=== PATIENT | male | born 1985 | race Caucasian/White ===

== ENCOUNTER 2025-02-28 15:17 | Emergency (ER) | payer BC, SELFPAY ==
--- OUTSIDE RECORDS SUMMARY | 2024-05-31 03:00 | XMS_ITS ---
Author Organization [facility] Address [address] [place], [place] [id number] Care Team Providers Care Assembler Utility Buildings Name Role Phone Stefani Cross Primary Care Provider REASON FOR VISIT new patient Social History Sex Assigned At : Social History Observation Description Sex Assigned At Male Encounters Encounter Location Date Provider Diagnosis [facility] [place] [address] [place], [place] [id number] 05/31/2024 Stefani Cross Plan Of Treatment No Information Progress Notes * Hans BLUMDOB:1985 (39 yo M)Acc No.[id number]:05/31/2024 Progress Notes Patient: Hans DUMONT Provider: Jenna Cross MD :1985 A ge:38 Y S ex:Male Date:05/31/2024 Address:[facility] [address] [place], [id number] Subjective: * Chief Complaints: * 1 . New patient. * Medical History: * Ocular Surgical History: Objective: * Vitals: Vision: Spectacle Rx: Contact Lens: Eye Examination: Special Tests: Assessment: Plan: * Treatment: Care Plan: * Problems: * Billing Information: * Visit Code: * Procedure Codes: * Electronic signature of Yehuda Cross MD on 02/28/2025 at 03:54 PM CDT Sign off status: Pending * Provider: Jenna Cross MD Date: 1 08/01/2023 Generated for Winston jorgensen/Diallo/Yordy on: 0 02/28/2025 03:54 PM CDT
--- OUTSIDE RECORDS SUMMARY | 2025-01-29 04:15 | XMS_ITS ---
Author Organization [facility] Address [address] [place], [place] [id number] Care Team Providers Care Vocational Nursing Instructor Name Role Phone Stefani Cross Primary Care Provider REASON FOR VISIT 6 month f/u Medications Medication SIG (Take, Route, Frequency, Duration) Notes Start Date End Date Status Amphetamine-Dextroamphetam ine 20 MG 1 tablet Orally Twice a day Active Sertraline HCl 100 MG 1 tablet Orally On ce a day; Duration: 90 days Active clonazePAM 0.5 MG 1 tablet Orally Once a day; Duration: 15 days 07/24/2024 Active Social History Sex Assigned At : Social History Observation Description Sex Assigned At Male Encounters Encounter Location Date Provider Diagnosis [facility] [address] [place], [place] [id number] 01/29/2025 Stefani Cross Plan Of Treatment No Information Progress Notes * Hans BLUMDOB:1985 (39 yo M)Acc No.[id number]:01/29/2025 Progress Notes Patient: Hans DUMONT Provider: Jenna Cross MD :1985 A ge:39 Y S ex:Male Date:01/29/2025 Address:[facility] [address] [place], [id number] Subjective: * Chief Complaints: * 1 . 6 month f/u. * Medical History: * Ocular Surgical History: * Medications: T aking Amphetamine-Dextroamphetamine 20 MG Tablet 1 tablet Orally Twice a day , Taking Sertraline HCl 100 MG Tablet 1 tablet Orally Once a day , Taking clonazePAM 0.5 MG Tablet 1 tablet Orally Once a day Objective: * Vitals: Vision: Spectacle Rx: Contact Lens: Eye Examination: Special Tests: Assessment: Plan: * Treatment: Care Plan: * Problems: * Billing Information: * Visit Code: * Procedure Codes: * Electronic signature of Yehuda Cross MD on 02/28/2025 at 02:29 AM CDT Sign off status: Pending * Provider: Jenna Cross MD Date: 01/29/2025 Generated for Winston jorgensen/Diallo/Yordy on: 02/28/2025 02:29 AM CDT
--- OUTSIDE RECORDS SUMMARY | 2025-02-28 02:11 | XMS_ITS | Encounter Summary ---
Author Organization [facility] Address [address] [place] [address] Phone Care Team Providers Care Audioprosthologist Name Role Phone Provider, None Primary Care Provider Unavailabl e Reason for Visit * Reason Comments Sore Throat Encounter Details Date Type Department Care Team (Late st Contact Info) Description 02/28/2025 2:11 AM CDT - 02/28/2025 3:32 AM CDT Emergency [facility] Emergency [address] [place] [address] Kenna Somers MD [address] [place] [address] Sore throat Discharge Disposition: Discharged to home or Selfcare Social History Tobacco Use Types Packs/Day Years Used Date Smoking Tobacco: Never Assessed Sex and Gender Information Value Date Recorded Sex Assigned at Not on file Legal Sex Male 2:06 AM CDT Gender Identity Not on file Sexual Orientation Not on file documented as of this encounter Last Filed Vital Signs Vital Sign Reading Time Taken Comments Blood Pressure 128/75 02/28/2025 3:27 AM CDT Pulse 73 02/28/2025 3:27 AM CDT Temperature 36.4 C (97.6 F) 02/28/2025 2:19 AM CDT Respiratory Rate 17 02/28/2025 3:27 AM CDT Oxygen Saturation 94% 02/28/2025 3:27 AM CDT Inhaled Oxygen Concentration - - Weight 83.9 kg (185 lb) 02/28/2025 2:19 AM CDT Height 175.3 cm (5' 9) 02/28/2025 2:19 AM CDT Body Mass Index 27.32 02/28/2025 2:19 AM CDT documented in this encounter Discharge Instructions * Discharge Instructions* Kenna Somers MD - 02/28/2025 3:21 AM CDT As we discussed, return to the ER if you develop fever (100.4 or greater), worsening pain, vomiting, drooling, shortness of breath, or you have any concerns. If you are a smoker, STOP SMOKING. Please use Tylenol/Motrin as needed for pain/fever control, follow directions on the package. documented in this encounter ED Notes * Leslie Early RN - 02/28/2025 3:31 AM CDT Patient discharged. Discharge instructions and patient educational material reviewed with patient; questions and concerns addressed; patient verbalizes understanding, using teach back. Patient was given 0 prescriptions. Patient was informed no drinking alcohol, driving or operating heavy machinery while taking narcotics or muscle relaxants. Patient discharged per ambulatory mode with self as responsible alliance party. SL D/C'ed with Parmjit cath intact. * Leslie Early RN - 02/28/2025 3:06 AM CDT Patient resting on stretcher with no requests at this time. Informed patient that we are awaiting lab results. States understanding. at bedside. Call light within reach. * Leslie Early RN - 02/28/2025 2:40 AM CDT Pt medicated per provider orders. Pt educated on intended effects and side effects of medication and verbalized understanding, able to provide teach back of education. * Leslie Early RN - 02/28/2025 2:20 AM CDT Patient presents to ED room 5A. No change in patients condition since triage note written. See triage note. Assessment as noted. Call light within reach. * Kenna Somers MD - 02/28/2025 2:17 AM CDT Chief Complaint Patient presents with Sore Throat 39M current smoker presents to the ED w/concerns for L neck swelling. 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 Notes mild odynophagia, but able to tolerate PO. Denies any trauma, sick contacts, or travel. Current Medications[1] Allergies[2] History reviewed. No pertinent past medical history. Past Surgical History[3] Social History Socioeconomic History Marital status: Spouse name: Not on file Number of children: Not on file Years of education: Not on file Highest education level: Not on file Occupational History Not on file Tobacco Use Smoking status: Not on file Smokeless tobacco: Not on file Substance and Sexual Activity Alcohol use: Not on file Drug use: Not on file Sexual activity: Not on file Other Topics Concern Not on file Social History Narrative Not on file Social Drivers of Health Financial Resource Needs: Not on file Food Insecurity Needs: Not on file Transportation Needs: Not on file Physical Activity: Not on file Stress: Not on file Social Integration: Not on file Personal Safety: Low Risk (02/28/2025) Personal Safety Feels Unsafe at Home or Work/School: no Feels Threatened by Someone: no Does Anyone Try to Keep You From Having Contact with Others or Doing Things Outside Your Home?: no Physical Signs of Abuse Present: no Housing Stability: Not on file BP 126/76 Pulse 80 Temp 97.6 ??F (36.4 ??C) (Tympanic) Resp 17 Ht 5' 9 (1.753 m) Wt 185 lb (83.9 kg) SpO2 94% BMI 27.32 kg/m?? Review of Systems Constitutional: Negative for fever. HENT: Positive for sore throat. Eyes: Negative for visual disturbance. Respiratory: Negative for shortness of breath. Gastrointestinal: Negative for abdominal pain. Genitourinary: Negative for dysuria. Skin: Negative for rash. Neurological: Negative for headaches. Physical Exam Constitutional: General: He is not in acute distress. Appearance: He is well-developed and normal weight. He is not ill-appearing, toxic-appearing or diaphoretic. HENT: Head: Normocephalic and atraumatic. Ears: Comments: Bilateral external exam is normal Mouth/Throat: Mouth: Mucous membranes are moist. No oral lesions. Pharynx: Oropharynx is clear. Uvula midline. No pharyngeal swelling, oropharyngeal exudate, posterior oropharyngeal erythema or uvula swelling. Tonsils: No tonsillar exudate or tonsillar abscesses. Eyes: Conjunctiva/sclera: Conjunctivae normal. Pupils: Pupils are equal, round, and reactive to light. Neck: Thyroid: No thyromegaly. Comments: There is appreciable swelling of the L side of the neck compared to the R. There is no palpable fluctuance, crepitus, or induration. There is no appreciable erythema. Cardiovascular: Rate and Rhythm: Normal rate and regular rhythm. Pulmonary: Effort: Pulmonary effort is normal. Abdominal: Palpations: Abdomen is soft. Musculoskeletal: Cervical back: Normal range of motion and neck supple. Lymphadenopathy: Cervical: No cervical adenopathy. Skin: General: Skin is warm and dry. Capillary Refill: Capillary refill takes less than 2 seconds. Neurological: General: No focal deficit present. Mental Status: He is alert. Procedures Recent Results (from the past 24 hours) CMP Collection Time: 02/28/25 2:36 AM Result Value Ref Range SODIUM 142 136 - 145 mmol/L POTASSIUM 4.0 3.5 - 5.1 mmol/L CHLORIDE 105 98 - 107 mmol/L CO2, VENOUS 28 22 - 30 mmol/L ANION GAP 13.0 <18.0 mmol/L GLUCOSE 90 70 - 99 mg/dL BUN 21 9 - 21 mg/dL CREATININE, BLOOD 1.10 0.70 - 1.30 mg/dL BUN/CREATININE RATIO 19 12 - 20 ratio TOTAL PROTEIN 6.5 6.0 - 8.0 g/dL ALBUMIN 4.0 3.5 - 5.0 g/dL A/G RATIO 1.6 1.0 - 2.2 CALCIUM 8.8 8.7 - 10.5 mg/dL T BILI 0.3 0.2 - 1.2 mg/dL SGOT (AST) 23 <43 U/L SGPT (ALT) 22 <56 U/L ALKALINE PHOSPHATASE 63 40 - 150 U/L GFR, ESTIMATED >60 >=60 GFR, EST. >60 >=60 GFR, EST. NONAFRICAN >60 >=60 CBC with Auto Differential Collection Time: 02/28/25 2:36 AM Result Value Ref Range WBC 7.73 4.00 - 12.00 10(3)/mcL RBC 4.36 (L) 4.40 - 5.80 10(6)/mcL HEMOGLOBIN (HGB) 13.6 13.0 - 16.5 g/dL HEMATOCRIT (HCT) 39.3 38.0 - 50.0 % MCV 90.1 82.0 - 96.0 fL MCH 31.2 26.0 - 32.0 pg MCHC 34.6 31.0 - 36.0 g/dL PLATELET COUNT 247 140 - 440 10(3)/mcL RDW 12.5 11.8 - 15.5 % MPV 8.7 8.0 - 12.6 fL NEUTROPHILS 53.7 40.0 - 68.0 % LYMPHOCYTES 32.9 19.0 - 49.0 % MONOCYTES 8.4 3.0 - 13.0 % EOSINOPHILS 4.0 0.0 - 8.0 % BASOPHILS 0.6 0.0 - 1.0 % IMMATURE GRANULOCYTE 0.4 0.0 - 0.4 % ABSOLUTE NEUTROPHILS 4.15 1.40 - 5.30 10(3)/mcL ABSOLUTE LYMPHOCYTES 2.54 0.90 - 3.30 10(3)/mcL ABSOLUTE MONOCYTES 0.65 0.10 - 0.90 10(3)/mcL ABSOLUTE EOSINOPHIL 0.31 0.00 - 0.50 10(3)/mcL ABSOLUTE BASOPHILS 0.05 0.00 - 0.10 10(3)/mcL ABSOLUTE IMMATURE GRANULOCYTE 0.03 0.00 - 0.03 10 (3) mcL. NRBC PER 100 WBC 0 GROUP A STREP BY PCR Collection Time: 02/28/25 2:38 AM Specimen: Throat; Swab Result Value Ref Range GROUP A STREP BY PCR NOT DETECTED NOT DETECTED Imaging Results None Medical Decision Making Check labs and strep Treat w/Oral decadron Patient feels better after obs here in the ED Labs and strep test unremarkable. Speaking in full, clear sentences w/o pain or dyspnea. Vss, no emc. Clinical Impression 1. Neck swelling 2. Sore throat Disposition: Discharge [1] No current facility-administered medications for this encounter. No current outpatient medications on file. [2] No Known Allergies [3] No past surgical history on file. * Sandra Garcia RN - 02/28/2025 2:15 AM CDT Pt to ED with c/o throat pain and swelling that started 4-5 hours ago. Pt reports it started under his tongue and progressed to the left side of his throat. Denies difficulty breathing or swallowing.Respirations are even and non- labored. Pt afebrile documented in this encounter Miscellaneous Notes * PatientPass Patient Instructions - Kenna Somers MD - 02/28/2025 3:21 AM CDT Images from the original note were not included. Patient Education Table of Contents Sore Throat To view videos and all your education online visit, [email or web address] or scan this QR code with your smartphone. Access to this content will in one year. Sore Throat When you have a sore throat, your throat may feel: Tender. Burning. Irritated. Scratchy. Painful when you swallow. Painful when you talk. Many things can cause a sore throat, such as: An infection. Allergies. Dry air. Smoke or pollution. Radiation treatment for cancer. Gastroesophageal reflux disease (GERD). A tumor. A sore throat can be the first sign of another sickness. It can happen with other problems, like: Coughing. Sneezing. Fever. Swelling of the glands in the neck. Most sore throats go away without treatment. Follow these instructions at home: Medicines Take myot-ttl-ckqomtf and prescription medicines only as told by your doctor. Children often get sore throats. Do not give your child aspirin. Use throat sprays to soothe your throat as told by your health care provider. Managing pain To help with pain: Sip warm liquids, such as broth, herbal tea, or warm water. Eat or drink cold or frozen liquids, such as frozen ice pops. Rinse your mouth (gargle) with a salt water mixture 3?4 times a day or as needed. ? To make salt water, dissolve ??1 tsp (3?6 g) of salt in 1 cup (237 mL) of warm water. ? Do not swallow this mixture. Suck on hard candy or throat lozenges. Put a cool-mist humidifier in your bedroom at night. Sit in the bathroom with the door closed for 5?10 minutes while you run hot water in the shower. General instructions Do not smoke or use any products that contain nicotine or tobacco. If you need help quitting, ask your doctor. Get plenty of rest. Drink enough fluid to keep your pee (urine) pale yellow. Wash your hands often for at least 20 seconds with soap and water. If soap and water are not available, use hand director cost. Contact a doctor if: You have a fever for more than 2?3 days. You keep having symptoms for more than 2?3 days. Your throat does not get better in 7 days. You have a fever and your symptoms suddenly get worse. Your child who is 3 months to 3 years old has a temperature of 102.2?F (39?C) or higher. Get help right away if: You have trouble breathing. You cannot swallow fluids, soft foods, or your spit. You have swelling in your throat or neck that gets worse. You feel like you may vomit (nauseous) and this feeling lasts a long time. You cannot stop vomiting. These symptoms may be an emergency. Get help right away. Call your local emergency services (911 int [place] Do not wait to see if the symptoms will go away. Do not drive yourself to the hospital. Summary A sore throat is a painful, burning, irritated, or scratchy throat. Many things can cause a sore throat. Take hcub-slk-crcpywy medicines only as told by your doctor. Get plenty of rest. Drink enough fluid to keep your pee (urine) pale yellow. Contact a doctor if your symptoms get worse or your sore throat does not get better within 7 days. This information is not intended to replace advice given to you by your health care provider. Make sure you discuss any questions you have with your health care provider. Document Released: 2009-03-14 Document Updated: 2021-08-31 Document Reviewed: 2021-09-01 Elsevier Patient Education ? 2024 [employer] documented in this encounter Plan of Treatment Not on file documented as of this encounter Procedures Procedure Name Priority Date/Time Associated Diagnosis Comments GROUP A STREP BY PCR STAT 02/28/2025 2:38 AM CDT CBC WITH AUTO DIFFERENTIAL STAT 02/28/2025 2:36 AM CDT CMP (COMPREHENSIVE METABOLIC PANEL) STAT 02/28/2025 2:36 AM CDT COMPLETE BLOOD COUNT (CBC) WITH DIFF STAT 02/28/2025 2:36 AM CDT documented in this encounter Results * GROUP A STREP BY PCR (02/28/2025 2:38 AM CDT) Pathologist [facility] GROUP A STREP BY PCR NOT DETECTED NOT DETECTED 02/28/2025 3:11 AM CDT [facility] Swab STRUCTURE OF ANTERIOR PORTION OF NECK / Unknown Non-Phlebotomy Collection / Unknown 02/28/2025 2:38 AM CDT 02/28/2025 2:45 AM CDT us Kenna Somers MD MICROBIOLOGY - GENERAL ORDERABLE S Final Result [facility] [address] [place] [address] * (ABNORMAL) CBC with Auto Differential (02/28/2025 2:36 AM CDT) Pathologist [facility] WBC 7.73 4.00 - 12.00 10(3)/mcL 02/28/2025 2:47 AM CDT [facility] RBC 4.36(L) 4.40 - 5.80 10(6)/mcL 02/28/2025 2:47 AM CDT [facility] HEMOGLOBIN (HGB) 13.6 13.0 - 16.5 g/dL 02/28/2025 2:47 AM CDT [facility] HEMATOCRIT (HCT) 39.3 38.0 - 50.0 % 02/28/2025 2:47 AM CDT [facility] MCV 90.1 82.0 - 96.0 fL 02/28/2025 2:47 AM CDT [facility] MCH 31.2 26.0 - 32.0 pg 02/28/2025 2:47 AM CDT [facility] MCHC 34.6 31.0 - 36.0 g/dL 02/28/2025 2:47 AM CDT [facility] PLATELET COUNT 247 140 - 440 10(3)/mcL 02/28/2025 2:47 AM CDT [facility] RDW 12.5 11.8 - 15.5 % 02/28/2025 2:47 AM CDT [facility] MPV 8.7 8.0 - 12.6 fL 02/28/2025 2:47 AM CDT [facility] NEUTROPHILS 53.7 40.0 - 68.0 % 02/28/2025 2:47 AM CDT [facility] LYMPHOCYTES 32.9 19.0 - 49.0 % 02/28/2025 2:47 AM CDT [facility] MONOCYTES 8.4 3.0 - 13.0 % 02/28/2025 2:47 AM CDT [facility] EOSINOPHILS 4.0 0.0 - 8.0 % 02/28/2025 2:47 AM CDT [facility] BASOPHILS 0.6 0.0 - 1.0 % 02/28/2025 2:47 AM CDT [facility] IMMATURE GRANULOCYTE 0.4 0.0 - 0.4 % 02/28/2025 2:47 AM CDT [facility] ABSOLUTE NEUTROPHILS 4.15 1.40 - 5.30 10(3)/mcL 02/28/2025 2:47 AM CDT [facility] ABSOLUTE LYMPHOCYTES 2.54 0.90 - 3.30 10(3)/[facility] 02/28/2025 2:47 AM CDT [facility] ABSOLUTE MONOCYTES 0.65 0.10 - 0.90 10(3)/mcL 02/28/2025 2:47 AM CDT [facility] ABSOLUTE EOSINOPHIL 0.31 0.00 - 0.50 10(3)/[facility] 02/28/2025 2:47 AM CDT [facility] ABSOLUTE BASOPHILS 0.05 0.00 - 0.10 10(3)/[facility] 02/28/2025 2:47 AM CDT [facility] ABSOLUTE IMMATURE GRANULOCYTE 0.03 0.00 - 0.03 10 (3) mcL. 02/28/2025 2:47 AM CDT [facility] NRBC PER 100 WBC 0 02/29/20 25 2:47 AM CDT [facility] Blood Venipuncture / Unknown 02/28/2025 2:36 AM CDT 02/28/2025 2:45 AM CDT us Kenna Somers MD HEMATOLOGY ORDERABLES Final Resu lt [facility] [address] [place] [address] * CMP (02/28/2025 2:36 AM CDT) SODIUM 142 136 - 145 mmol/L 02/28/2025 3:06 AM CDT [facility] POTASSIUM 4.0 3.5 - 5.1 mmol/L 02/28/2025 3:06 AM CDT [facility] CHLORIDE 105 98 - 107 mmol/L 02/28/2025 3:06 AM CDT [facility] CO2, VENOUS 28 22 - 30 mmol/L 02/28/2025 3:06 AM [facility] ANION GAP 13.0 <18.0 mmol/L 02/28/2025 3:06 AM [facility] GLUCOSE 90 70 - 99 mg/dL 02/28/2025 3:06 AM [facility] BUN 21 9 - 21 mg/dL 02/28/2025 3:06 AM [facility] CREATININE, BLOOD 1.10 0.70 - 1.30 mg/dL 02/28/2025 3:06 AM [facility] BUN/CREATININE RATIO 19 12 - 20 ratio 02/28/2025 3:06 AM [facility] TOTAL PROTEIN 6.5 6.0 - 8.0 g/dL 02/28/2025 3:06 AM [facility] ALBUMIN 4.0 3.5 - 5.0 g/dL 02/28/2025 3:06 AM [facility] A/G RATIO 1.6 1.0 - 2.2 02/28/2025 3:06 AM [facility] CALCIUM 8.8 8.7 - 10.5 mg/dL 02/28/2025 3:06 AM [facility] T BILI 0.3 0.2 - 1.2 mg/dL 02/28/2025 3:06 AM [facility] SGOT (AST) 23 <43 U/L 02/28/2025 3:06 AM [facility] SGPT (ALT) 22 <56 U/L 02/28/2025 3:06 AM [facility] ALKALINE PHOSPHATASE 63 40 - 150 U/L 02/28/2025 3:06 AM [facility] GFR, ESTIMATED >60 >=60 02/28/2025 3:06 AM [facility] Comment: Creatinine Clearance is the preferred criteria for selecting drug dose adjustments in renally impaired patients. The GFR is provided as additional pertinent clinical information. GFR is reported in mL/min/1.73 sq m. Calculation based on the 2020 Chronic Kidney Disease Epidemiology Collaboration (CKD-EPI) equation refit without adjustment for race. GFR, EST. >60 >=60 025 3:06 AM CDT [facility] Comment: Creatinine Clearance is the preferred criteria for selecting drug dose adjustments in renally impaired patients. The GFR is provided as additional pertinent clinical information. GFR is reported in mL/min/1.73 sq m. Calculation based on the 2009 Chronic Kidney Disease Epidemiology Collaboration (CKD-EPI). GFR, EST. NONAFRICAN >60 >=60 02/28/2025 3:06 AM CDT [facility] Comment: Creatinine Clearance is the preferred criteria for selecting drug dose adjustments in renally impaired patients. The GFR is provided as additional pertinent clinical information. GFR is reported in mL/min/1.73 sq m. Calculation based on the 2009 Chronic Kidney Disease Epidemiology Collaboration (CKD-EPI). Blood Venipuncture / Unknown 02/28/2025 2:36 AM CDT 02/28/2025 2:45 AM CDT us Kenna Somers MD CHEMISTRY ORDERABLES Final Resul t [facility] [address] [place] [address] documented in this encounter Visit Diagnoses Diagnosis Neck swelling- Primary Swelling, mass, or lump in head and neck Sore throat Acute pharyngitis documented in this encounter Administered Medications Inactive Administered Medications - up to 3 most recent administrations Medication Order MAR Action Action Date Dose Rate Site dexamethasone (DECADRON) 10 mg Oral 10 mg, Oral, ONCE, 1 dose, On Mon02/28/25 at 0300 Given 02/28/2025 2:39 AM CDT 10 mg documented in this encounter Active and Recently Administered Medications Times are shown in CDT. Scheduled Medication Order 02/26/2025 02/27/2025 02/28/2025 dexamethasone (DECADRON) 10 mg Oral (COMPLETED) 10 mg, Oral, ONCE, 1 dose, On Mon02/28/25 at 0300 0239 (Given - Provid er: Leslie Early RN) documented in this encounter Care Teams Audioprosthologist Relationship Specialty Start Date End Date Provider, None [place] PCP - General 02/28/25 documented as of this encounter
[2025-02-28 15:27] VITALS: BP 123/88; PULSE 91; RESP 18; TEMP 36.3; O2SAT 99
--- NOTE | 2025-02-28 15:31 | ED.GENADULT ---
HPI - General Adult General Stated complaint: work note Time Seen by Provider: 02/28/25 15:39 Source: patient Mode of arrival: ambulatory Limitations: no limitations History of Present Illness HPI narrative: 39 y/o male presented for Return to work note. Reports improving right hand pain, left shoulder pain following injury 5 days ago. Patient endorses injury 5 days ago, after which she was seen at [facility] and [facility] ER, imaging was completed and was told normal. He says he was advised to return to work on 02/27 per the work note. When he attempted to return to work his employer told him he needed additional clearance from a pcp, which he does not have. Pt says his symptoms are resolved, and he did not want to return to the ER for the note. Related Data Home Medications ?Medication ?Instructions ?Recorded ?Confirmed ?Last Taken ?Type clonazepam 0.5 mg tablet mg 02/28/25 Unknown History naproxen sodium 550 mg tablet mg 02/28/25 Unknown History Allergies Allergy/AdvReac Type Severity Reaction Status Date / Time No Known Allergies Allergy Verified 02/28/25 15:40 Review of Systems Review of Systems: CONSTITUTIONAL: Denies body aches, fever, chills, or sweats. CARDIOVASCULAR: Denies chest pain, palpitations, or edema. RESPIRATORY: Denies cough or dyspnea. SKIN: Denies wounds. MUSCULOSKELETAL: Denies back pain, joint pain, or myalgia. NEUROLOGIC: Denies headache, numbness, tingling, or weakness. All systems reviewed & are unremarkable except as noted in HPI and below PMFSH Comments At time of signature, I have reviewed and agree with nursing past medical, surgical, social and family history unless otherwise noted. Please see nursing chart for further information. There is no relevant family history pertinent to the presenting complaint Exam Narrative: GENERAL: Well-appearing EYES: Conjunctivae normal. CHEST: No respiratory distress. Clear to auscultation. HEART: Regular rate and rhythm. MUSCULOSKELETAL: No bony tenderness. EXTREMITIES: Normal range of motion. No edema. bilateral hand liability analyst strong and equal, no swelling or bruising to the hand. SKIN: Warm, dry, no rash. Capillary refill normal. Normal skin turgor. NEURO: No focal deficits. Alert and oriented x3. Gait steady. Course Course Emergency Course: Patient is aware of diagnosis, understands and agrees to treatment plan. Anticipatory guidance given. Patient agrees to follow-up as directed and is aware of reasons to seek care at the emergency department. Portions of this record may have been created with voice recognition software Level of Care: Express Care Visit Vital Signs Vital signs: Vital Signs Temperature 97.3 F L 02/28/25 15:27 Pulse Rate 91 02/28/25 15:27 Respiratory Rate 18 02/28/25 15:27 Blood Pressure 123/88 02/28/25 15:27 Pulse Oximetry 99 02/28/25 15:27 Oxygen Delivery Room Air 02/28/25 15:27 Temperature 97.3 F L 02/28/25 15:27 Pulse Rate 91 02/28/25 15:27 Respiratory Rate 18 02/28/25 15:27 Blood Pressure 123/88 02/28/25 15:27 Pulse Oximetry 99 02/28/25 15:27 Oxygen Delivery Room Air 02/28/25 15:27 Reviewed Medical Decision Making MDM Narrative Medical decision making narrative: Discussed physical exam findings. Pt completed imaging at outside facility, reports improvement in all symptoms. No bruising or swelling, no bony tenderness. Advised supportive measures and signs/symptoms to go to the ER. Pt is appropriate for outpt treatment and f/u. Differential Diagnosis Differential Diagnosis: hand sprain, strain, contusion Vital Signs Vital Signs: Vital Signs Temperature 97.3 F L 02/28/25 15:27 Pulse Rate 91 02/28/25 15:27 Respiratory Rate 18 02/28/25 15:27 Blood Pressure 123/88 02/28/25 15:27 Pulse Oximetry 99 02/28/25 15:27 Oxygen Delivery Room Air 02/28/25 15:27 Temperature 97.3 F L 02/28/25 15:27 Pulse Rate 91 02/28/25 15:27 Respiratory Rate 18 02/28/25 15:27 Blood Pressure 123/88 02/28/25 15:27 Pulse Oximetry 99 02/28/25 15:27 Oxygen Delivery Room Air 02/28/25 15:27 reviewed Discharge Plan Discharge Clinical Impression: Hand pain, right Patient Disposition: Home Condition: Stable Instructions: Antibiotic Form, Hand Sprain (ED) Additional Instructions: Rest avoid lifting, pushing, pulling etc. and elevate the hand, activity as tolerated Apply ice 15-20 minute intervals several times a day Motrin and Tylenol every 8 hours as needed Follow up with your primary care provider as needed go to the ER for worsening symptoms or concerns Patient Language: Uzbek Follow-up/Referrals: PHYSICIAN,GAUGE MACHINE OPERATOR [Primary Care Provider, Internal Medicine] Stand Alone Forms: Work/School Release IP Time of Disposition: 15:48
--- OUTSIDE RECORDS SUMMARY | 2025-02-28 15:54 | XMS_ITS | Encounter Summary ---
Author Organization [facility] Care Team Providers Care Spice Blender Name Role Phone Provider, None Primary Care Provider Unavailabl e Encounter Details Date Type Department Care Team (Latest Contact Info) Description 02/28/2025 Travel Social History Tobacco Use Types Packs/Day Years Used Date Smoking Tobacco: Never Assessed Sex and Gender Information Value Date Recorded Sex Assigned at Not on file Legal Sex Male 2:06 AM CDT Gender Identity Not on file Sexual Orientation Not on file documented as of this encounter Plan of Treatment Not on file documented as of this encounter Visit Diagnoses Not on filedocumented in this encounter Care Teams Spice Blender Relationship Specialty Start Date End Date Provider, None [place] PCP - General 02/28/25 documented as of this encounter
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
--- OUTSIDE RECORDS SUMMARY | 2025-02-28 15:54 | XMS_ITS | Patient Health Record ---
Author Organization [facility] Address [address] [place], [place] [id number] Care Team Providers Care Eating Disorder Specialist Name Role Phone Stefani Cross Primary Care Provider Allergies No Known Allergies Results Component Value Reference Range Notes CBC W/AUTO DIFF Reviewed date:07/24/2024 01:15:28 PM Interpretation: Performing [facility]), [address] [place], [place] [id number], Phone - [phone] Notes/Report: Test Performed at [facility], [facility] [address], [place] [address]. x2231. Assistant Professor Of Business: Hamzah Erickson MD. CLIA# [id number] Test Performed at [facility], [facility] [address], [place] [address]. x2231. Assistant Professor Of Business: Hamzah Erickson MD. CLIA# [id number] White blood cell count 7.03 3.80-10.80 K/uL Red blood cell count 4.85 4.20-5.80 M/uL Hemoglobin 14.8 13.2-17.1 g/dL Hematocrit 43.3 38.5-50.0 % Mean Cell Volume 89 80-100 fL Mean Corpuscular Hemoglobin 30.5 27.0-33.0 pg Mean Corpuscular Hemoglobin Concentration 34.2 32.0-36.0 % Red Cell Distribution Width 12.3 11.0-15.0 % Platelet Count 259 130-400 K/uL Mean Platelet Volume 8.7 7.4-11.5 fL Neutrophil # 3.9 2.0-6.9 K/uL Lymphocyte # 2.3 0.6-3.4 K/uL Monocyte # 0.6 0.0-0.9 K/uL Eosinophil # 0.19 0.00-0.70 K/uL Basophil # 0.040 0.000-0.200 K/uL Neutrophil % 56.1 37.0-80.0 % Lymphocyte% 32.4 10.0-50.0 % Monocyte % 8.1 0.0-12.0 % Eosinophil % 2.7 0.0-10.0 % Basophil % 0.6 0.0-3.0 % Lipid Profile Reviewed date:07/24/2024 01:15:59 PM Interpretation: Performing Lab:[facility] [place] [place] [id number], Phone - [phone] Notes/Report: Test Performed at [facility], [address], [place] [address]. x2231. Assistant Professor Of Business: Hamzah Erickson MD. CLIA# [id number] Test Performed at [facility], [facility] [address], [place] [address]. x2231. Assistant Professor Of Business: Hamzah Erickson MD. CLIA# [id number] Test Performed at [facility], [address], [place] [address]. x2231. Assistant Professor Of Business: Hamzah Erickson MD. CLIA# [id number] Test Performed at [facility], [facility] [address], [place] [address]. x2231. Assistant Professor Of Business: Hamzah Erickson MD. CLIA# [id number] Cholesterol Alinity 136 100-195 mg/dL Triglycerides Alinity 77 40-136 mg/dL ULTRA HIGH DENSITY LIPOPTOTEIN Alinity 46 36-76 mg/dL CHOL/UHDL RATIO Alinity 2.96 0.00-4.90 Direct LDL Cholesterol 87.00 60.00-130.00 mg/dl Thyroid Stimulating Hormone Reviewed date:07/24/2024 01:16:04 PM Interpretation: Performing Lab:[facility]), [address] [place], [place] [id number], Phone - [phone] Notes/Report: Test Performed at [facility], [address], [place] [address]. x2231. Assistant Professor Of Business: Hamzah Erickson MD. CLIA# [id number] Test Performed at [facility], [facility] [address], [place] [address]. x2231. Assistant Professor Of Business: Hamzah Erickson MD. CLIA# [id number] Test Performed at [facility], [address], [place] [address]. x2231. Assistant Professor Of Business: Hamzah Erickson MD. CLIA# [id number] Test Performed at [facility], [address], [place] [address]. x2231. Assistant Professor Of Business: Hamzah Erickson MD. CLIA# [id number] Test Performed at [facility], [address], [place] [address]. x2231. Assistant Professor Of Business: Hamzah Erickson MD. CLIA# [id number] TSH Alinity 1.09 0.40-4.94 mIU/mL CMP Reviewed date:07/26/2024 05:31:29 PM Interpretation: Performing Lab:[facility] ([facility]), [address] [place], [place] [id number], Phone - [phone] Notes/Report: Test Performed at [facility], [address], [place] [address]. x2231. Assistant Professor Of Business: Hamzah Erickson MD. CLIA# [id number] Test Performed at [facility], [address], [place] [address]. x2231. Assistant Professor Of Business: Hamzah Erickson MD. CLIA# [id number] Test Performed at [facility], [address], [place] [address]. x2231. Assistant Professor Of Business: Hamzah Erickson MD. CLIA# [id number] Test Performed at [facility], [address], [place] [address]. x2231. Assistant Professor Of Business: Hamzah Erickson MD. CLIA# [id number] Lactate Dehydrogenase 158 125-250 U/L Carbon Dioxide Alinity 23 20-31 mmol/L Albumin Alinity 4.4 3.2-5.4 g/dL Alkaline Phosphatase Alinity 65 40-125 U/L Alanine Aminotransferase Alinity 18 0-42 U/L Aspartate Aminotransferase Alinity 26 5-34 U/L Calcium Alinity 9.5 8.4-10.6 mg/dL Chloride Alinity 107 95-107 mmol/L Creatinine Alinity 1.16 0.70-1.25 mg/dL Glucose Alinity 125 55-110 mg/dL Urea Nitrogen Alinity 27.0 6.0-25.0 mg/dL Total Protein Alinity 7.3 5.8-8.5 g/dL GLOBULIN Alinity 2.90 1.50-4.50 Sodium Alinity 142 136-145 mmol/L Potassium Alinity 3.9 3.6-5.1 mmol/L BUN/CREAT RATIO Alinity 23.28 5.00-20.00 EGFR-AA Alinity 85 59-120 120ml/min/1.73m2 EGFR Alinity 70 59-120 120ml/min/1.73m2 Non Total Bilirubin Alinity 0.5 0.1-12.0 mg/dL DRUG ABUSE PANEL 14 Reviewed date:07/24/2024 01:15:46 PM Interpretation: Performing Lab:[facility] ([facility]), [address] [place], [place] [address], Phone - [phone] Notes/Report: Test Performed at [facility], [address], [place] [address]. x2231. Assistant Professor Of Business: Hamzah Erickson MD. CLIA# [id number] Amphetamines preliminary positive Negative Benzodiazepines negative Negative Cocaine preliminary positive Negative Marijuana negative Negative Methadone negative Negative ng/ml Opiates negative Negative Phencyclidine negative Negative Barbiturates negative Negative Buprenorphine negative Negative Ecstasy negative Negative Oxycodone negative Negative ng/mL Methamphetamine preliminary positive Negative Tricyclic Antidepressants negative Negative Reason For Referral No Information Medications Medication SIG (Take, Route, Frequency, Duration) Notes Start Date End Date Status Amphetamine-Dextroamphetam ine 20 MG 1 tablet Orally Twice a day Active Sertraline HCl 100 MG 1 tablet Orally On ce a day; Duration: 90 days Active clonazePAM 0.5 MG 1 tablet Orally Once a day; Duration: 15 days 07/24/2024 Active Social History Tobacco Use: Social History Observation Description Date Details (start date - stop date) Never Smoker NA - NA Sex Assigned At : Social History Observation Description Sex Assigned At Male SBIRT (2018 Edition) Question Answer Notes Patient refused/declined SBIRT screening at this time? No 1. How often do you have a drink containing alco hol? Monthly or less 2. How many drinks containin g alcohol do you have on a typical day when you are drinking? 1 or 2 3. How often do you have five or more drinks on one occasion? Never SCORE 1 Interpretation Negative How many times in the past y ear have you used an illegal drug or used a prescription medication for non-medical reasons? 1 or more Total Count 1 Interpretation Positive Tobacco Control (Standard) Question Answer Notes Tobacco use: Nonsmoker Problems Problem Type SNOMED Code ICD Code Onset Dates Problem Status W/U Status Risk Notes Problem Anxiety (68630069) Anxiety (F41.9) Active confirmed Problem Herpes simplex viral infection (29575471) Herpes (B00.9) Active confirmed Problem Adult attention deficit hyperactivity disorder (disorder) (756684286) Attention deficit disorder (ADD) in adult (F98.8) Active confirmed Problem Moderate major depression (370063) Moderate major depression (F32.1) Active confirmed Vital Signs Heart Rate 71 /min 07/24/2024 Pt comes in to establish care, B. Luhy MA II Temperature 97.6 degrees Fahrenheit 07/24/2024 Pt c omes in to establish care, B. Handy MA II Respiratory Rate 18 /min 07/24/2024 Pt comes in to establish care, B. Handy MA II Blood pressure diastolic 65 mm Hg 07/24/2024 Pt comes in to establish care, B. Handy MA II Oximetry 96 % 07/24/2024 Pt comes in to establish care, B. Handy MA II Weight-kg 81.19 kg 07/24/2024 Pt comes in to establish care, B. Handy MA II Blood pressure systolic 116 mm Hg 07/24/2024 Pt c omes in to establish care, B. Arsen MA II Weight 179 lbs 07/24/2024 Pt comes in to establish care, B. Arsen MA II Encounters Encounter Location Date Provider Diagnosis [facility] [address] [place], [place] [id number] 07/24/2024 Stefani Cross Anxiety F41.9 ; Moderate major depression F32.1 ; Attention deficit disorder (ADD) in adult F98.8 ; Herpes B00.9 and Substance use F19.90 Assessments Encounter Date Diagnosis (ICD Code) Assessment Notes Treatment Notes Treatment Clinical Notes Section Notes 07/24/2024 Anxiety (ICD-10 - F41.9) 07/24/2024 Moderate major depression (ICD-10 - F32.1) 07/24/2024 Attention deficit disorder (ADD) in adult (ICD-10 - F98.8) 07/24/2024 Herpes (ICD-10 - B00.9) 07/24/2024 Substance use (ICD-10 - F19.90) Plan Of Treatment Pending Test Test Name Order Date CBC (INCLUDES DIFF/PLT)- [facility] 025 Insurance Providers Payer Name Payer Address Payer Phone Subscriber Number Group Number Insured Name Patient Relationship to Insured Coverage Start Date Coverage End Date [facility] ([facility] [address] [place] [address] [phone] [id number] Hans Villanueva Self - patient is the insured
--- OUTSIDE RECORDS SUMMARY | 2025-02-28 15:54 | XMS_ITS | Clinical Summary ---
Author Organization [facility] Address [address] [place] [address] Phone Care Team Providers Care Coater Helper Name Role Phone Provider, None Primary Care Provider Unavailabl e Allergies No known active allergies Medications No known medications Encounters Date Type Department Care Team Description 02/28/2025 2:11 AM CDT - 02/28/2025 3:32 AM CDT Emergency [facility] [address] [place] [address] Kenna Somers MD Sore throat Discharge Disposition: Discharged to home or Selfcare 02/28/2025 Travel from Last 3 Months Social History Tobacco Use Types Packs/Day Years Used Date Smoking Tobacco: Never Assessed Sex and Gender Information Value Date Recorded Sex Assigned at Not on file Legal Sex Male 2:06 AM CDT Gender Identity Not on file Sexual Orientation Not on file Last Filed Vital Signs Vital Sign Reading [...] Mass Index 27.32 02/28/2025 2:19 AM CDT Plan of Treatment Not on file Procedures Procedure Name Priority Date/Time Associated Diagnosis Comments GROUP A STREP BY PCR STAT 02/28/2025 2:38 AM CDT CBC WITH AUTO DIFFERENTIAL STAT 02/28/2025 2:36 AM CDT CMP (COMPREHENSIVE METABOLIC PANEL) STAT 02/28/2025 2:36 AM CDT COMPLETE BLOOD COUNT (CBC) WITH DIFF STAT 02/28/2025 2:36 AM CDT from Last 3 Months Results * GROUP A STREP BY PCR (02/28/2025 2:38 AM CDT) [facility] GROUP A STREP BY PCR NOT DETECTED NOT DETECTED 02/28/2025 3:11 AM CDT [facility] Swab STRUCTURE OF ANTERIOR PORTION OF NECK / Unknown Non-Phlebotomy Collection / Unknown 02/28/2025 2:38 AM CDT 02/28/2025 2:45 AM CDT Kenna Somers MD MICROBIOLOGY - GENERAL ORDERABLE S Final Result [facility] [address] [place] [address] * (ABNORMAL) CBC with Auto Differential (02/28/2025 2:36 AM CDT) [facility] WBC 7.73 4.00 - 12.00 10(3)/mcL 02/28/2025 2:47 AM CDT [facility] RBC 4.36(L) 4.40 - 5.80 10(6)/mcL 02/28/2025 2:47 AM CDT [facility] HEMOGLOBIN (HGB) 13.6 13.0 - 16.5 g/dL 02/28/2025 2:47 AM CDT [facility] HEMATOCRIT (HCT) 39.3 38.0 - 50.0 % 02/28/2025 2:47 AM CDT [facility] MCV 90.1 82.0 - 96.0 fL 02/28/2025 2:47 AM CDT [facility] MCH 31.2 26.0 - 32.0 pg 02/28/2025 2:47 AM CDT [facility] MCHC 34.6 31.0 - 36.0 g/dL 02/28/2025 2:47 AM CDT [facility] PLATELET COUNT 247 140 - 440 10(3)/mcL 02/28/2025 2:47 AM CDT [facility] RDW 12.5 11.8 - 15.5 % 02/28/2025 2:47 AM CDT [facility] MPV 8.7 8.0 - 12.6 fL 02/28/2025 2:47 AM CDT [facility] NEUTROPHILS 53.7 40.0 - 68.0 % 02/28/2025 2:47 AM CDT [facility] LYMPHOCYTES 32.9 19.0 - 49.0 % 02/28/2025 2:47 AM CDT [facility] MONOCYTES 8.4 3.0 - 13.0 % 02/28/2025 2:47 AM CDT [facility] EOSINOPHILS 4.0 0.0 - 8.0 % 02/28/2025 2:47 AM CDT [facility] BASOPHILS 0.6 0.0 - 1.0 % 02/28/2025 2:47 AM CDT [facility] IMMATURE GRANULOCYTE 0.4 0.0 - 0.4 % 02/28/2025 2:47 AM CDT [facility] ABSOLUTE NEUTROPHILS 4.15 1.40 - 5.30 10(3)/mcL 02/28/2025 2:47 AM CDT [facility] ABSOLUTE LYMPHOCYTES 2.54 0.90 - 3.30 10(3)/mcL 02/28/2025 2:47 AM CDT [facility] ABSOLUTE MONOCYTES 0.65 0.10 - 0.90 10(3)/mcL 02/28/2025 2:47 AM CDT [facility] ABSOLUTE EOSINOPHIL 0.31 0.00 - 0.50 10(3)/mcL 02/28/2025 2:47 AM CDT [facility] ABSOLUTE BASOPHILS 0.05 0.00 - 0.10 10(3)/mcL 02/28/2025 2:47 AM CDT [facility] ABSOLUTE IMMATURE GRANULOCYTE 0.03 0.00 - 0.03 10 (3) mcL. 02/28/2025 2:47 AM CDT [facility] NRBC PER 100 WBC 0 02/29/20 25 2:47 AM CDT [facility] Blood Venipuncture / Unknown 02/28/2025 2:36 AM CDT 02/28/2025 2:45 AM CDT us Kenna Somers MD HEMATOLOGY ORDERABLES Final Resu lt [facility] [address] [place] [address] * CMP (02/28/2025 2:36 AM CDT) SODIUM 142 136 - 145 mmol/L 02/28/2025 3:06 AM CDT [facility] POTASSIUM 4.0 3.5 - 5.1 mmol/L 02/28/2025 3:06 AM CDT [facility] CHLORIDE 105 98 - 107 mmol/L 02/28/2025 3:06 AM CDT [facility] CO2, VENOUS 28 22 - 30 mmol/L 02/28/2025 3:06 AM CDT [facility] ANION GAP 13.0 <18.0 mmol/L 02/28/2025 3:06 AM CDT [facility] GLUCOSE 90 70 - 99 mg/dL 02/28/2025 3:06 AM CDT [facility] BUN 21 9 - 21 mg/dL 02/28/2025 3:06 AM [facility] CREATININE, BLOOD 1.10 0.70 - 1.30 mg/dL 02/28/2025 3:06 AM [facility] BUN/CREATININE RATIO 19 12 - 20 ratio 02/28/2025 3:06 AM [facility] TOTAL PROTEIN 6.5 6.0 - 8.0 g/dL 02/28/2025 3:06 AM [facility] ALBUMIN 4.0 3.5 - 5.0 g/dL 02/28/2025 3:06 AM [facility] A/G RATIO 1.6 1.0 - 2.2 02/28/2025 3:06 AM [facility] CALCIUM 8.8 8.7 - 10.5 mg/dL 02/28/2025 3:06 AM [facility] T BILI 0.3 0.2 - 1.2 mg/dL 02/28/2025 3:06 AM [facility] SGOT (AST) 23 <43 U/L 02/28/2025 3:06 AM [facility] SGPT (ALT) 22 <56 U/L 02/28/2025 3:06 AM [facility] ALKALINE PHOSPHATASE 63 40 - 150 U/L 02/28/2025 3:06 AM [facility] GFR, ESTIMATED >60 >=60 02/28/2025 3:06 AM [facility] Comment: Creatinine Clearance is the preferred criteria for selecting drug dose adjustments in renally impaired patients. The GFR is provided as additional pertinent clinical information. GFR is reported in mL/min/1.73 sq m. Calculation based on the 2020 Chronic Kidney Disease Epidemiology Collaboration (CKD-EPI) equation refit without adjustment for race. GFR, EST. >60 >=60 025 3:06 AM [facility] Comment: Creatinine Clearance is the preferred criteria for selecting drug dose adjustments in renally impaired patients. The GFR is provided as additional pertinent clinical information. GFR is reported in mL/min/1.73 sq m. Calculation based on the 2009 Chronic Kidney Disease Epidemiology Collaboration (CKD-EPI). GFR, EST. NONAFRICAN >60 >=60 02/28/2025 3:06 AM CDT [facility] Comment: Creatinine Clearance is the preferred [...] Somers MD CHEMISTRY ORDERABLES Final Resul t [facility] [address] [place] [address] from Last 3 Months Insurance [facility] Care Teams Coater Helper Relationship Specialty Start Date End Date Provider, None [place] PCP - General 02/28/25
== END 2025-02-28 15:53 | disposition home or self-care (01) ==
PROVIDERS: Emergency Provider Nurse Practitioner Family
DX: M79.641 Pain in right hand (principal)
CPT/HCPCS: 99202; G0463